=== PATIENT | female | born 1935 | race Caucasian/White ===

== ENCOUNTER → 2017-01-22 | Day surgery (SDC) | payer OTHER ==
[~2017-01-22] VITALS: Ht 152.4 cm; Wt 59.0 kg
[~2017-01-22] MED LIST: TOUJEO SOL300 UNIT/1 SC
--- NOTE | 2017-01-22 10:11 | Operative Report ---
Operative/Inv Procedure Report Surgery Date: 01/22/17 Name of Procedure: cysto,TURB, sling Pre-Operative Diagnosis: bladder tumors, stress incontinence Post-Operative Diagnosis: same Estimated Blood Loss: 50ml to 100ml Surgeon/Truck Hop: KRISTIN TURNER MD Anesthesia: laryngeal mask airway Implants: vaginal mesh Drains: none Specimens: bladder tumors Complications: none Condition: stable Operative Indication: bladder tumors and stress incontinence Operative/Procedure Note Note: This an operative dictation on patient [place]. She was identified in the holding area and consented for transurethral resection of bladder tumors and urethral sling and cystoscopy. The risks benefits and alternatives of the surgery were given including injury to anything in the bladder urethral region including the ureteral orifices. All questions were answered. Patient was taken to the operating placed on the operating table in supine position. Once IV antibiotics were given timeout was performed and the LMA anesthesia was provided. She was placed in the dorsal lithotomy position and prepped and draped in the standard sterile fashion. The transurethral resection of the bladder tumor portion of the case was started first. The bladder was globally inspected with the cystoscope and 2 small lesions were seen. One at the left lateral wall just lateral to the UO and one at 3:00 at the bladder neck. These were resected using the cutting loop at 80 and passed off the field for pathology examination. The area was cauterized and no active bleeding was noted. The ureteral orifices were in the normal anatomic position. No other bladder lesions or tumors were seen. Bladder was emptied and the sling portion of the case was started. 16 [place] Malik catheter was placed into the bladder and the bladder was emptied. Malik was clamped and placed on the patient's abdomen. 1% lidocaine with epinephrine was infiltrated into the anterior vaginal wall suburethrally. An incision was made and the vaginal flaps were created taking care not to injure the urethra. The Altis Sling kit was then opened and the trochars provided were used to place the sling on the patient's left side followed by the right side into the obturator fascia. Sling was tensioned and seen to be in a good tension-free manner. There area was grossly irrigated with bacitracin irrigation. There was no mesh in the vaginal fornices. The incision was closed with 3-0 Vicryl locking every third suture. The Malik was removed and the bladder and the urethra was examined again with cystoscopy. There was no evidence of any injury or mesh in the bladder or the urethra. Sponge and needle count were correct at the end the case. Vaginal packing was placed with bacitracin ointment. Patient tolerated the procedure well. Findings: no mesh in bladder or urethra or vaginal fornices Discharge Disposition: PACU
== END ==
LOC: STS 01:31
DX: C67.8 Malignant neoplasm of overlapping sites of bladder (principal); N39.3 Stress incontinence (female) (male); E11.9 Type 2 diabetes mellitus without complications; Z79.4 Long term (current) use of insulin
CPT/HCPCS: 88307; 93005; 93010; C1771; J0690; J2250